=== PATIENT | male | born 1950 | race Caucasian/White ===

== ENCOUNTER → 2020-05-06 | Outpatient (CLI) | payer MEDICARE, OTHER ==
[~2020-05-06] MED LIST: ADULT LOW DOSE81 MG PO; COZAAR 50MG TAB50 MG PO; CYCLOBENZAPRINE10 MG PO; DILT-XR240 MG PO; MEDROL4 MG PO; NEURONTIN800 MG PO; NORCO 7.5-3251 EACH PO; PROTONIX40 MG PO; SYMBICORT 16010.2 GM INH; VENTOLIN HFA 66.7 GM INH; XOPENEX1.25 MG/3 NEB; ZOFRAN4 MG PO; ZOLOFT50 MG PO
[2020-05-06 13:04] LABS: HEMOGLOBIN 15.7 gm/dl (14.0-17.5); RED BLOOD COUNT 5.05 M/UL (4.20-5.50); WHITE BLOOD COUNT 14.4 K/UL (4.5-11.0)
[2020-05-06 13:22] LABS: BUN/CREATININE RATIO 15 (0-10)
== END ==
LOC: CT 04-16 09:00
PROVIDERS: Internal Medicine Hematology & Oncology
DX: C34.12 Malignant neoplasm of upper lobe, left bronchus or lung (principal); M84.48XA Pathological fracture, other site, initial encounter for fracture
CPT/HCPCS: 36415; 71046; 71100; 71260; 80053; 85027; Q9967

== ENCOUNTER → 2021-02-25 | Outpatient (CLI) | payer MEDICARE | LOC: RAD 14:15 | DX: M25.511 Pain in right shoulder (principal); M25.512 Pain in left shoulder | CPT/HCPCS: 73030 ==

== ENCOUNTER → 2021-09-13 | Outpatient (CLI) | payer MEDICARE ==
[2021-09-13 10:03] LABS: HEMOGLOBIN 14.5 gm/dl (14.0-17.5); RED BLOOD COUNT 4.8 M/UL (4.20-5.50)
[2021-09-13 10:27] LABS: BUN/CREATININE RATIO 16 (0-10)
== END ==
LOC: CT 08-22 09:00
PROVIDERS: Internal Medicine Hematology & Oncology
DX: C34.12 Malignant neoplasm of upper lobe, left bronchus or lung (principal)
CPT/HCPCS: 36415; 71260; 80053; 85025; Q9967